=== PATIENT | female | born 1965 | race African-American/Black ===

== ENCOUNTER 2023-02-27 04:15 | Emergency (ER) | payer SELFPAY ==
[2023-02-27] MEDS ORDERED: Ketorolac Tromethamine 30 MG (1 mL) VIAL ONE (04:32)
== END 2023-02-27 04:55 | disposition home or self-care (01) ==
LOC: NAV ERS 04:15
DX: M79.18 Myalgia, other site (principal); I10 Essential (primary) hypertension
CPT/HCPCS: 96374; J1885